=== PATIENT | female | born 1970 | race Hispanic/Latino ===

== ENCOUNTER 2017-01-21 13:56 | Emergency (ER) | payer OTHER ==
[~2017-01-21] VITALS: Ht 157.5 cm; Wt 73.5 kg
--- NOTE | 2017-01-21 14:05 | ED DYSPNEA/ASTHMA COMPLAINT ---
History of Present Illness General Chief Complaint: Wheezing/Asthma Stated Complaint: ASTHMA X1DAY Source: patient Exam Limitations: no limitations Vital Signs & Intake/Output Vital Signs & Intake/Output Vital Signs Date Time Temp Pulse Resp B/P B/P Pulse O2 O2 Flow FiO2 Mean Ox Delivery Rate 01/21 1650 78 20 131/70 97 Room Air 01/21 1611 74 18 130/70 99 Nasal 2.0L Cannula 01/21 1607 97 Nasal 2.0L Cannula 01/21 1437 99 Room Air 01/21 1435 98 Nasal 2.0L Cannula 01/21 1404 98.2 88 20 144/81 97 Room Air ED Intake and Output 01/22 0000 01/21 1200 Intake Total 0 Output Total Balance 0 Intake, Oral 0 Patient 162 lb Weight Weight Reported by Patient Measurement Method Allergies Coded Allergies: No Known Allergies (01/21/17) Reconcile Medications Methylprednisolone. (Medrol) 4 MG TAB.DS.PK 1 DP PO AD INFLAMMATION 6 on day 1 then reduce by one tablet daily until gone Triage Note: PT C/O ASTHMA AND STATES SHE USED HER INHALER WITHOUT RELIEF. O2 SAT 97% IN TRIAGE. PT APPEARS IN NAD. STATES SHE WAS INTUBATED LAST YEAR D/T HER ASTHMA Triage Nurses Notes Reviewed? yes Onset: Abrupt Duration: day(s): (2) Timing: recent history Severity: moderate, severe Activities at Onset: none Associated Symptoms: cough, PALPITATIONS HPI: This is a 46-year-old female with history of asthma/COPD presents to the ER with 2 days worth of shortness of breath. She states that she feels her tight to be chest and has some palpitations. 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 She states today she used her inhaler without any relief. She was intubated in March for 4 days secondary to asthma/COPD. At this time she is smoke-free. She was smoking one pack a day until that time. No history of coronary disease. Past History Travel History Traveled to [place] past 21 day No Medical History Any Pertinent Medical History? see below for history Respiratory: asthma Surgical History Surgical History: non-contributory Psychosocial History What is your primary language Nigerien Tobacco Use: Never used ETOH Use: denies use Illicit Drug Use: denies illicit drug use Family History Hx Contributory? No Review of Systems Review of Systems Constitutional: Denies: chills, fever. EENTM: Reports: no symptoms. Respiratory: Reports: cough, short of breath. Denies: sputum production. Cardiovascular: Denies: chest pain, palpitations. GI: Denies: abdominal pain. Genitourinary: Reports: no symptoms. Musculoskeletal: Reports: no symptoms. Skin: Reports: no symptoms. Neurological/Psychological: Reports: no symptoms. Hematologic/Endocrine: Denies: bruising, bleeding, polyuria, polydipsia. Immunologic/Allergic: Denies: splenectomy. All Other Systems: Reviewed and Negative Physical Exam Physical Exam General Appearance: well developed/nourished, alert, awake, anxious Head: atraumatic, normal appearance Eyes: Bilateral: normal appearance, PERRL, EOMI. Ears, Nose, Throat: normal pharynx, normal ENT inspection, hearing grossly normal Neck: normal inspection, supple, full range of motion Respiratory: decreased breath sounds, wheezing Cardiovascular: regular rate/rhythm Peripheral Pulses: 2+ radial (R), 2+ radial (L) Gastrointestinal: normal bowel sounds, soft, non-tender Extremities: normal inspection, normal capillary refill, normal range of motion, no edema Neurologic/Psych: no motor/sensory deficits, awake, alert, oriented x 3, ANXIOUS Skin: intact, normal color, warm/dry Core Measures ACS in differential dx? No Severe Sepsis Present: No Septic Shock Present: No Progress Differential Diagnosis: asthma, COPD, pulmonary embolism, pneumonia, pneumothorax Plan of Care: Orders Procedure Date/time Status COMPREHENSIVE METABOLIC PANEL 01/21 1430 Complete CBC WITHOUT DIFFERENTIAL 01/21 1430 Complete RT ED ORDERS 01/21 1423 Complete Laboratory Tests 01/21/17 1440: Anion Gap 14, Estimated GFR > 60, BUN/Creatinine Ratio 18.6, Glucose 127 H, Calcium 9.5, Total Bilirubin 0.4, AST 16, ALT 30, Alkaline Phosphatase 72, Total Protein 6.8, Albumin 4.1, Globulin 2.7, Albumin/Globulin Ratio 1.5, CBC w Diff NO MAN DIFF REQ, RBC 4.52, MCV 88.0, MCH 29.6, RDW 12.8, MPV 7.6, Gran % 83.7 H , Lymphocytes % 14.4 L, Monocytes % 1.5 L, Eosinophils % 0.3, Basophils % 0.1, Absolute Granulocytes 5.9, Absolute Lymphocytes 1.0 L, Absolute Monocytes 0.1 L, Absolute Eosinophils 0, Absolute Basophils 0, PUBS MCHC 33.6 DUONEB, PREDNISONE ORDERED. NS BOLUS ORDERED. REPEAT NEB ORDERED. IMPROVED AEARATION. UPON AMBULATION PATIENT BECAME TACHYPNEIC WITHOUT SIGNIFICANT DROP IN O2. CXR, IV MAGNESIUM ORDERED. 17:49 CXR NEGATIVE. PATIENT FEELS MUCH IMPROVED. STABLE FOR DISCHARGE HOME AT THIS TIME. (BRAYDON VAUGHAN,IRMA) Diagnostic Imaging: Viewed by Me: Radiology Read. Discussed w/RAD: Radiology Read. CXR Impression: PATIENT: ESE WALLACE PRESENT AGE: 46 PATIENT ACCOUNT NO: [id number] : 69 LOCATION: [facility] ORDERING PHYSICIAN: IRMA BRYSON MD SERVICE DATE: 01/21/17 EXAM TYPE: RAD - XRY-CHEST XRAY , PA AND LATERAL EXAMINATION: XR CHEST CLINICAL INFORMATION: Pneumonia COMPARISON: None TECHNIQUE: 2 views of the chest were obtained. FINDINGS: No significant abnormality is noted involving the heart, lungs, mediastinum, bony thorax or soft tissues. IMPRESSION: Unremarkable examination. DICTATED BY: KETURAH GUILLAUME MD DATE/TIME DICTATED:01/21/171720 PECAN SHELLER: NORMA DATE/TIME TRANSCRIBED:01/21/171720 CONFIDENTIAL, DO NOT COPY WITHOUT APPROPRIATE AUTHORIZATION. <Electronically signed in Other Vendor System> SIGNED BY: KETURAH GUILLAUME MD 01/21/171724 Initial ED EKG: none Rhythm Strip: normal sinus rhythm Departure Departure Time of Disposition: 1748 Disposition: HOME OR SELF CARE Condition: Stable Clinical Impression Primary Impression: Asthma Additional Instructions: Use your albuterol nebulizer treatment as discussed. Take the Medrol Dosepak as prescribed. No work for the next 2 days. 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 Return as needed. Departure Forms: Customer Survey General Discharge Information Prescriptions: Current Visit Scripts Methylprednisolone. (Medrol) 1 DP PO AD #1 DP 6 on day 1 then reduce by one tablet daily until gone Critical Care Note Critical Care Note Critical Care Time: 30-74 min
[2017-01-21 14:49] LABS: ABSOLUTE BASOPHIL COUNT 0 /CUMM (0.0-0.2); ABSOLUTE EOSINOPHIL COUNT 0 /CUMM (0.0-0.7); ABSOLUTE GRANULOCYTE CT 5.9 /CUMM (1.4-6.5); ABSOLUTE MONOCYTE COUNT 0.1 /CUMM (0.10-0.60); BASOPHIL % 0.1 % (0.0-2.0); EOSINOPHIL % 0.3 % (0-5); GRANULOCYTE % 83.7 % (42.2-75.2); HEMATOCRIT 39.8 % (37-47); MEAN CORPUSCULAR HGB 29.6 PG (27.0-31.0); MEAN CORPUSCULAR HGB CONC 33.6 G/DL (33.0-37.0); MEAN PLATELET VOLUME 7.6 FL (7.4-10.4); PLATELET COUNT 327 /CUMM (130-400); RBC DISTRIBUTION WIDTH 12.8 % (11.5-14.5); RED BLOOD CELL CT 4.52 /CUMM (4.20-5.40); WHITE BLOOD CELL COUNT 7.1 /CUMM (4.8-10.8)
[2017-01-21 16:50] VITALS: BP 131/70
--- NOTE | 2017-01-21 17:25 | RADIOLOGY REPORT ---
EXAMINATION: XR CHEST CLINICAL INFORMATION: Pneumonia COMPARISON: None TECHNIQUE: 2 views of the chest were obtained. FINDINGS: No significant abnormality is noted involving the heart, lungs, mediastinum, bony thorax or soft tissues. IMPRESSION: Unremarkable examination.
[2017-01-21] MEDS ORDERED: MEDROL4 M2 PO (17:50)
== END 2017-01-21 18:04 ==
LOC: ERH 13:56
PROVIDERS: Emergency Medicine
DX: J45.909 Unspecified asthma, uncomplicated (principal); R07.89 Other chest pain
CPT/HCPCS: 1263; 96374